=== PATIENT | female | born 1960 | race Caucasian/White ===

== ENCOUNTER 2017-01-23 09:01 | Emergency (ER) | payer BC ==
--- NOTE | 2017-01-23 10:12 | RAD ---
INDICATION: Chronic severe headaches COMPARISON: October 12, 2013 TECHNIQUE: Noncontrast axial source images were acquired from the skull base to the vertex. FINDINGS: Ventricles/sulci: The ventricles and cisterns are normal in size and configuration for age. Brain parenchyma: There is no focal parenchymal finding, evidence of intracranial mass, or intracranial mass effect. Intracranial hemorrhage:None. Extra-axial spaces: There are no abnormal extra axial fluid collections or evidence of extra-axial mass. Calvarium: There is no calvarial fracture or other calvarial abnormality. Scalp: There is no evidence of scalp or extracalvarial soft tissue abnormality. Paranasal sinuses/mastoid: The paranasal sinuses and mastoid air cells are clear. Other: There is a neurostimulator the left neck extending to the skull base. IMPRESSION: No acute intracranial findings.
[2017-01-23 10:28] VITALS: BP 118/77
--- NOTE | 2017-01-23 12:31 | ED ---
Head Injury - HPI Summary HPI Summary: 56F presents with worsening headache past three days. She has a neurostimulator for nerve entrapment. This was placed 10 years ago at the [facility]. Three years ago stimulator stopped working so she had it replaced at [facility]. She states she went back to [facility] three days ago and they did xray and realized one of leads of nerve stimulator had fallen into shoulder. She states at that time she had shut the stimulator off. She got a follow up with a neurosurgeon on Saturday as the [facility] did not have one at the location for this anymore. She states since then her pain has increased in intensity and is a large area. She called her primary who told her to come here for a CT. She denies any injury. - History Of Current Complaint Chief Complaint: EDHeadache Stated Complaint: HEAD PAIN Time Seen by Provider: 01/23/17 12:15 Pain Intensity: 7 - Allergies/Home Medications Allergies/Adverse Reactions: Allergies Allergy/AdvReac Type Severity Reaction Status Date / Time Amoxicillin [From Trimox] Allergy Swelling Verified 06/24/15 09:27 PMH/Surg Hx/FS Hx/Imm Hx Endocrine/Hematology History: Denies: Hx Anticoagulant Therapy Cardiovascular History: Denies: Hx Hypertension History: Reports: Other Problems/Disorders - bladder not emptying fully Neurological History: Reports: Other Neuro Impairments/Disorders - entrapped ocipital nerve 6 years ago - Surgical History Surgery Procedure, Year, and Place: neuro stimulator 6 yrs ago - Immunization History Date of Tetanus Vaccine: PT STATES UNSURE Date of Influenza Vaccine: NONE Infectious Disease History: No Infectious Disease History: Denies: Traveled Outside the [place] in Last 30 Days - Family History Known Family History: Positive: Cardiac Disease - Social History Alcohol Use: Occasionally Substance Use Type: Reports: None Review of Systems Negative: Fever Negative: Chest Pain Negative: Shortness Of Breath Positive: Headache All Other Systems Reviewed And Are Negative: Yes Physical Exam Triage Information Reviewed: Yes Vital Signs On Initial Exam: Initial Vitals Temp Pulse Resp BP Pulse Ox 97.8 F 84 17 148/84 99 01/23/17 09:07 01/23/17 09:07 01/23/17 09:07 01/23/17 09:07 01/23/17 09:07 Vital Signs Reviewed: Yes Appearance: Positive: Well-Appearing Skin: Positive: Warm, Dry Head/Face: Positive: Normal Head/Face Inspection Eyes: Positive: Normal, EOMI, HEATHER, Conjunctiva Clear ENT: Positive: Normal ENT inspection, Pharynx normal, TMs normal Respiratory/Lung Sounds: Positive: Clear to Auscultation, Breath Sounds Present Cardiovascular: Positive: Normal, RRR Neurological: Positive: Sensory/Motor Intact, Alert, Oriented to Person Place, Time, CN Intact II-III - [place] Coma Scale Best Eye Response: 4 - Spontaneous Best Motor Response: 6 - Obeys Commands Best Verbal Response: 5 - Oriented Diagnostics - Vital Signs Vital Signs Temp Pulse Resp BP Pulse Ox 01/23/17 10:28 97.9 F 64 18 118/77 95 01/23/17 09:07 97.8 F 84 17 148/84 99 - Laboratory Lab Statement: Any lab studies that have been ordered have been reviewed, and results considered in the medical decision making process. - CT brain CT Interpretation: No Acute Changes CT Interpretation Completed By: Radiologist Head Injury Course/Dx Course Of Treatment: 56F presents with worsening headache past three days. She has a neurostimulator for nerve entrapment. This was placed 10 years ago at the [facility]. Three years ago stimulator stopped working so she had it replaced at [facility]. She states she went back to [facility] three days ago and they did xray and realized one of leads of nerve stimulator had fallen into shoulder. She states at that time she had shut the stimulator off. She got a follow up with a neurosurgeon on Saturday as the [facility] did not have one at the location for this anymore. She states since then her pain has increased in intensity and is a large area. She called her primary who told her to come here for a CT. CT normal. discussed results with patient neurosurgeon in [place]. discussed pain medication with patient and decided on gabapentin. patient understands and agrees with plan. - Diagnoses Differential Diagnosis/HQI/PQRI: Other - mass, stimulator issue, tension headache Provider Diagnoses: Headache Discharge - Discharge Plan Condition: Good Disposition: HOME Prescriptions: Gabapentin CAP(*) [Neurontin 100 mg CAP(*)] 100 mg PO TID #30 cap Patient Education Materials: Gabapentin (By mouth) Referrals: Ross Hernández MD [Primary Care Provider] - Additional Instructions: Follow up with neurosurgery as scheduled Take gabapentin up to three times a day Return to ED if develop any new or worsening symptoms
[2017-01-23] MEDS ORDERED: Gabapentin CAP(*) 100 MG PO ONE (12:33)
== END 2017-01-23 13:16 | disposition home or self-care (01) ==
LOC: ED 09:01
DX: R51 Headache (principal)
CPT/HCPCS: 70450; 99282; A9270-GY

== ENCOUNTER 2018-03-12 12:30 | Day surgery (SDC) | payer BC ==
[~2018-03-12 12:30] MED LIST: Buffered Lidocaine 0.9% SYRIN* 5 ML/SYR SYRINGE INTRADERM ONE; Dexamethasone IV* 4 MG/ML 1 ML (4 MG) IV SLOW PU ONE; DiMENhydriNATE IV* 50 MG/ML VIAL IV PUSH ONE; Famotidine IV* 10 MG/ML 2 ML (20 mg) IV ONE
[2018-03-12] MEDS ORDERED: Buffered Lidocaine 0.9% SYRIN* 5 ML/SYR SYRINGE ONE (13:17)
[2018-03-12] MEDS ORDERED: Famotidine IV* 10 MG/ML 2 ML (20 mg) ONE (13:17)
[2018-03-12] MEDS ORDERED: DiMENhydriNATE IV* 50 MG/ML VIAL ONE (13:17)
[2018-03-12] MEDS ORDERED: Dexamethasone IV* 4 MG/ML 1 ML (4 MG) ONE (13:17)
[2018-03-12] MEDS ORDERED: Lidocain 1% EPI 1:100,000 * 30 ML MDV ONE (14:08)
[2018-03-12] MEDS ORDERED: Lidocaine 4% TOPICAL* 50 ML TOP.SOLN ONE (14:08)
[2018-03-12] MEDS ORDERED: Oxymetazoline 0.05% NASAL SPR* 15 ML BTL ONE (14:08)
[2018-03-12] MEDS ORDERED: Bacitracin OINTMENT* 0.5% 0.5 oz TUBE ONE (14:09)
[2018-03-12] MEDS ORDERED: Midazolam* 1 MG/ML 5 ML VIAL (5 MG) ONE (15:05)
[2018-03-12] MEDS ORDERED: fentaNYL* 50 MCG/ML 2 ML VIAL (100 MCG VIAL) ONE (15:05)
[2018-03-12] MEDS ORDERED: Propofol* 10 MG/ML 20 ML BTL IV PUSH ONE (15:13)
[2018-03-12] MEDS ORDERED: Lidocaine 2% PF * 5 ML VIAL ONE (15:13)
[2018-03-12] MEDS ORDERED: Ondansetron INJ* 2 MG/ML VIAL ONE (15:34)
[2018-03-12 17:27] VITALS: BP 110/66
--- NOTE | 2018-03-13 06:49 | OP ---
DATE OF OPERATION: 03/12/18 - [facility] DATE OF : 64 SURGEON: Ramin Francois MD GUNITE MIXER: None. ANESTHESIA: Local with sedation. PRE-OP DIAGNOSIS: Bilateral inferior turbinate hypertrophy. POST-OP DIAGNOSIS: Bilateral inferior turbinate hypertrophy. OPERATIVE PROCEDURE: Outfracture and cautery of the inferior turbinates. INDICATION: This is a 57-year-old woman with bilateral inferior turbinate hypertrophy and sleep apnea with difficulty interfacing with her CPAP device, turbinate hypertrophy has been refractory to medical management. The decision was made to bring the patient to the operating room for turbinate reduction. DESCRIPTION OF PROCEDURE: On 03/12/18, the patient was brought to the operating room. Sedation was given intravenously by the anesthesiologist. The patient was draped. A time- out was performed. Pledget soaked with Afrin and 4 % lidocaine were placed into each nasal cavity. 1% lidocaine with epinephrine was then infiltrated into each inferior turbinate. The turbinates were then infractured with a freer air elevator. Approximately four passes were made thorough each turbinate using the Elmed bipolar device trying to cauterize it along its length. The turbinates were then outfractured. The patient was then returned to the recovery. Anesthesiologist allowed her to arise from anesthesia , delivered to the PACU in stable condition. [id number]/[id number] #: [id number] MTDD
== END 2018-03-12 17:31 | disposition home or self-care (01) ==
LOC: OR 12:30
PROVIDERS: ATTEND Otolaryngology
DX: J34.3 Hypertrophy of nasal turbinates (principal); R33.9 Retention of urine, unspecified
CPT/HCPCS: A9270-GY; J1100; J1240; J2250; J2405; J2704; J3010